=== PATIENT | female | born 1945 | race Caucasian/White ===

== ENCOUNTER 2016-12-01 13:18 | Observation (INO) ==
--- NOTE | 2016-12-01 13:40 | Emergency Department Note ---
Disposition Clinical Impression: Altered mental status Qualifiers: Altered mental status type: unspecified Qualified Code(s): R41.82 - Altered mental status, unspecified Disposition: Admitted As Inpatient Condition: Fair Referrals: Joao Barnes Jr, MD [Primary Care Provider] - Forms: ED Satisfaction Letter Time of Disposition: 15:37 Altered Mental Status HPI - General Chief Complaint: ED Altered Mental Status Stated Complaint: AMS, 830am LKW Time Seen by Provider: 12/01/16 13:26 Source: patient, family Limitations: no limitations Nursing Notes Reviewed: Yes Vital Signs Reviewed: Yes - History of Present Illness HPI Narrative: 71-year-old woke up this morning for slight headache about 8:30. The patient had a normal routine when laid back down because she wasn't feeling well. Patient woke up again at noon and doesn't remember doing any of her morning activities. She denies any weakness in her extremities any numbness. MD complaint: confusion Onset (ago): unknown (He awoke at 8:30 with a headache and some confusion.) Timing confirmed by: spouse Pain Severity: moderate Associated symptoms: Reports: headaches. Denies: chest pain, fever - Related Data Home Medications Medication Instructions Recorded Confirmed Alendronate Sodium [Fosamax] 70 mg PO QWEEK 02/19/16 02/19/16 Docusate [Colace] 50 mg PO DAILY 02/19/16 02/19/16 LORazepam [Ativan] 0.5 mg PO DAILY 02/19/16 02/19/16 Losartan/HCTZ [Hyzaar 50-12.5 1 each PO DAILY 02/19/16 02/19/16 Tablet] Simethicone [Gas-X] 80 mg PO QID 02/19/16 02/19/16 Previous Rx's Medication Instructions Recorded Oxycodone HCl/Acetaminophen 1 tab PO Q6H PRN #39 tab 02/19/16 [Percocet 10-325 mg Tablet] Allergies Allergy/AdvReac Type Severity Reaction Status Date / Time No Known Allergies Allergy Verified 12/01/16 13:20 Constitutional: Denies: fever, chills, weakness, weight change Eyes: Denies: eye pain, eye discharge, vision change ENT ED: Denies: ear pain, throat pain, dental pain, hearing loss, epistaxis, congestion, dysphagia Cardiovascular: Denies: chest pain, palpitations, dyspnea on exertion, edema, syncope Respiratory: Denies: cough, dyspnea, wheezes, hemoptysis, stridor Gastrointestinal: Denies: abdominal pain, nausea, vomiting, diarrhea, constipation, hematemesis, melena, hematochezia Genitourinary: Denies: dysuria, frequency, hematuria, discharge Musculoskeletal: Denies: back pain, neck pain, arthralgia, myalgia Integumentary: Denies: rash, abrasion, lesions Neurological: Reports: headache. Denies: weakness, numbness, paresthesias, confusion, abnormal gait, vertigo Psychiatric: Denies: anxiety, depression, suicidal thoughts, homicidal thoughts , auditory hallucinations, visual hallucinations Endocrine: Denies: fatigue Hematological/Lymphatic: Denies: easy bleeding, easy bruising Allergic/Immunologic: Denies: facial swelling, urticaria Past Medical History - Past Medical History Medical history: Reports: hyperlipidemia, hypertension, kidney stones, migraine , other Surgical history: Reports: breast surgery, cholecystectomy, orthopedic, other, other Psychiatric history: Reports: anxiety TEAR DOWN MATCHER history: Reports: no TEAR DOWN MATCHER history - Social History Smoking Status: Never smoker Smokeless Tobacco Status: No Alcohol use: Reports: none Drug use: Reports: none Physical Exam - General Limitations: no limitations General appearance: alert, in no apparent distress - Head Head exam: atraumatic, normocephalic, normal inspection - Eye Eye exam: Present: normal appearance, PERRL, EOMI - ENT ENT exam: normal exam, normal oropharynx, mucous membranes moist - Neck Neck exam: Present: normal inspection, full ROM, trachea midline - Chest Chest inspection: Present: normal inspection, symmetric chest wall rise - Respiratory Respiratory exam: Present: normal lung sounds bilaterally - Cardiovascular Cardiovascular exam: Present: regular rate, normal rhythm, normal heart sounds - Abdominal Exam Abdominal exam: Present: soft, Non-Tender. Absent: tenderness, distention, guarding, rebound, rigidity - Extremities Exam Extremities exam: Present: normal inspection, full ROM. Absent: tenderness, pedal edema - Expanded Lower Extremity Exam Neurovascular/Tendon exam: Absent: motor deficit, sensory deficit, tendon deficit Gait: not tested/not observed - Back Exam Back exam: Present: normal inspection, full ROM. Absent: tenderness - Neurological Exam Neurological exam: Present: alert, oriented X3 - Psychiatric Psychiatric exam: Present: normal affect, normal mood - Skin Skin exam: Present: warm, dry, intact, normal color Course - Reevaluation(s) Reevaluation #1: 71-year-old had an episode in which she did not remember what happened. At the point that I admit arrangements to admit the patient the mentioned that in the past she's had what is called abdominal seizures. Severe crampy abdominal pain following that she does not remember. Time: 15:35 - Consultations Consultation #1: Discussed with Thania Parish, jesus. Time: 15:36 Vital Signs Temperature 97.8 F 12/01/16 13:20 Pulse Rate 83 12/01/16 13:20 Respiratory Rate 16 12/01/16 13:20 Blood Pressure 135/84 12/01/16 13:20 O2 Sat by Pulse Oximetry 95 12/01/16 13:20 Temperature 97.8 F 12/01/16 13:20 Pulse Rate 52 12/01/16 14:50 Respiratory Rate 16 12/01/16 14:50 Blood Pressure 128/85 12/01/16 14:50 O2 Sat by Pulse Oximetry 96 12/01/16 14:50 Oxygen Delivery Oxygen Delivery Room Air Altered Mental Status - Lab Data Lab results reviewed: Yes I reviewed the patient's lab results. Result diagrams: 12/01/16 13:40 12/01/16 13:40 Lab Results 12/01/16 12/01/16 12/01/16 Range/Units 13:40 13:40 13:40 WBC 7.8 (4.3-11.1) K/mcL RBC 4.80 (3.82-4.97) M/mcL Hgb 15.4 (11.5-15.4) g/dL Hct 44.8 (35.3-44.9) % MCV 93.3 (83.0-100.0) fL MCH 32.1 (28.0-33.3) pg MCHC 34.4 (31.6-35.5) g/dL RDW 12.3 (11.5-14.5) % Plt Count 148 (140-400) K/mcL MPV 9.3 L (9.4-12.4) fL Immature Gran % 0.8 (0-4) % Seg Neutrophils % 71.0 % Lymphocytes % 21.3 % Monocytes % 6.0 % Eosinophils % 0.4 % Basophils % 0.5 % Neutrophils # 5.5 (1.6-8.9) K/mcL Lymphocytes # 1.7 (0.6-4.6) K/mcL Monocytes # 0.5 (0.0-1.3) K/mcL Eosinophils # 0.0 (0.0-0.6) K/mcL Basophils # 0.0 (0.0-0.2) K/mcL PT 11.5 (9.4-12.1) Seconds INR 1.1 APTT 28.5 (26.0-36.0) Seconds Sodium 138 (136-145) mEq/L Potassium 4.0 (3.5-4.5) mEq/L Chloride 107 (98-109) mEq/L Carbon Dioxide 21 (19-29) mEq/L BUN 13 (7-20) mg/dL Creatinine 1.09 (0.57-1.11) mg/dL Est GFR ( Amer) > 60 (> 60) Est GFR (Non-Af Amer) 50 L (> 60) BUN/Creatinine Ratio 12 (6-26) Glucose 118 H (70-99) mg/dL Calculated Osmolality 287 (280-300) Calcium 9.5 (8.6-10.8) mg/dL Total Bilirubin 0.7 (0.2-1.2) mg/dL Direct Bilirubin 0.2 (0.0-0.5) mg/dL Indirect Bilirubin 0.5 (0.0-1.2) mg/dL AST 29 (5-34) Units/L ALT 27 (0-55) Units/L Alkaline Phosphatase 52 (38-126) Units/L Troponin I (0-0.03) ng/mL Serum Total Protein 7.3 (6.0-8.3) g/dL Albumin 3.7 (3.5-5.0) g/dL Globulin 3.6 H (2.4-3.5) g/dL Albumin/Globulin Ratio 1.0 L (1.1-2.2) Urine Color (Yellow) Urine Clarity (Clear) Urine pH (5.0-8.0) pH Units Ur Specific [place] (1.010-1.025) Urine Protein (Neg-Trace) mg/dL Urine Glucose (UA) (Normal) mg/dL Urine Ketones (Negative) mg/dL Urine Blood (Negative) Urine Nitrite (Negative) Urine Bilirubin (Negative) Urine Urobilinogen (Normal) mg/dL Ur Leukocyte Esterase (Negative) Ur Culture Indicated? (NO) Urine Opiates Screen (Zcscpc=396) ng/mL Ur Barbiturates Screen (Gzoawd=701) ng/mL Ur Phencyclidine Scrn (Cutoff=25) ng/mL Ur Amphetamines Screen (Lseumj=1165) ng/mL U Benzodiazepines Scrn (Deegem=894) ng/mL Urine Cocaine Screen (Cutoff= 300) ng/mL U Marijuana (THC) Screen (Cutoff = 50) ng/mL Ethyl Alcohol < 10 (0-10) mg/dL 12/01/16 12/01/16 12/01/16 Range/Units 13:40 15:00 15:07 WBC (4.3-11.1) K/mcL RBC (3.82-4.97) M/mcL Hgb (11.5-15.4) g/dL Hct (35.3-44.9) % MCV (83.0-100.0) fL MCH (28.0-33.3) pg MCHC (31.6-35.5) g/dL RDW (11.5-14.5) % Plt Count (140-400) K/mcL MPV (9.4-12.4) fL Immature Gran % (0-4) % Seg Neutrophils % % Lymphocytes % % Monocytes % % Eosinophils % % Basophils % % Neutrophils # (1.6-8.9) K/mcL Lymphocytes # (0.6-4.6) K/mcL Monocytes # (0.0-1.3) K/mcL Eosinophils # (0.0-0.6) K/mcL Basophils # (0.0-0.2) K/mcL PT (9.4-12.1) Seconds INR APTT (26.0-36.0) Seconds Sodium (136-145) mEq/L Potassium (3.5-4.5) mEq/L Chloride (98-109) mEq/L Carbon Dioxide (19-29) mEq/L BUN (7-20) mg/dL Creatinine (0.57-1.11) mg/dL Est GFR ( Amer) (> 60) Est GFR (Non-Af Amer) (> 60) BUN/Creatinine Ratio (6-26) Glucose (70-99) mg/dL Calculated Osmolality (280-300) Calcium (8.6-10.8) mg/dL Total Bilirubin (0.2-1.2) mg/dL Direct Bilirubin (0.0-0.5) mg/dL Indirect Bilirubin (0.0-1.2) mg/dL AST (5-34) Units/L ALT (0-55) Units/L Alkaline Phosphatase (38-126) Units/L Troponin I 0.00 (0-0.03) ng/mL Serum Total Protein (6.0-8.3) g/dL Albumin (3.5-5.0) g/dL Globulin (2.4-3.5) g/dL Albumin/Globulin Ratio (1.1-2.2) Urine Color Yellow (Yellow) Urine Clarity Clear (Clear) Urine pH 6.0 (5.0-8.0) pH Units Ur Specific [place] 1.022 (1.010-1.025) Urine Protein Negative (Neg-Trace) mg/dL Urine Glucose (UA) Normal (Normal) mg/dL Urine Ketones Negative (Negative) mg/dL Urine Blood Negative (Negative) Urine Nitrite Negative (Negative) Urine Bilirubin Negative (Negative) Urine Urobilinogen Normal (Normal) mg/dL Ur Leukocyte Esterase Negative (Negative) Ur Culture Indicated? NO (NO) Urine Opiates Screen Negative (Jzmzti=300) ng/mL Ur Barbiturates Screen Negative (Fsbdsa=202) ng/mL Ur Phencyclidine Scrn Negative (Cutoff=25) ng/mL Ur Amphetamines Screen Negative (Nlgidb=4836) ng/mL U Benzodiazepines Scrn Negative (Mlrdpt=577) ng/mL Urine Cocaine Screen Negative (Cutoff= 300) ng/mL U Marijuana (THC) Screen Negative (Cutoff = 50) ng/mL Ethyl Alcohol (0-10) mg/dL - Radiology Data Radiology results reviewed: Yes I reviewed the patient's radiology results. Chest X-Ray 12/01/16 13:27 IMPRESSION: 1. No active pulmonary disease. 2. Chronic elevation right hemidiaphragm. D/ / Yoel Valderrama MD / Yoel Valderrama MD Interpreting Provider: Yoel Valderrama MD Head CT 12/01/16 13:38 IMPRESSION: No acute intracranial abnormality. D/ / Neto Young MD / Neto Young MD Interpreting Provider: Neto Young MD - EKG Data EKG attestation: Yes I reviewed and interpreted this EKG. EKG shows normal: sinus rhythm Rate: normal Rhythm: NSR Interpretation: nonspecific ST-T wave changes TPA Checklist - Eligibilty for IV tPA 1. LKW equal to or less than 4.5 hours be before treatment: No - LKW: 3-4.5 hrs Add. Contraindications Patient/family understanding: The patient/family members have been counseled and understood the risk, benefit , and alternatives of treatment. NIH Stroke Scale - Level of Consciousness LOC: Alert - LOC Questions LOC Questions: Answers both correctly - LOC Commands LOC Commands: Performs both correctly - Best Gaze Best Gaze: Normal - Visual Visual: No visual loss - Facial Palsy Facial Palsy: Normal - Motor Arms Motor Arm-Left: No drift for 10 seconds Motor Arm-Right: No drift for 10 seconds - Motor Legs Motor Leg-Left: No drift for 5 seconds Motor Leg-Right: No drift for 5 seconds - Limb Ataxia Limb Ataxia: Normal, No Ataxia - Sensory Sensory: Normal - Best Language Best Language: No aphasia - Dysarthria Dysarthria: Normal - Extinction and Inattention Extinction and Inattention: Normal - NIHSS Total Score NIHSS Total Score: 0
[2016-12-01 13:46] LABS: Basophils % 0.5 %; Eosinophils % 0.4 %; Hematocrit 44.8 % (35.3-44.9); Hemoglobin 15.4 g/dL (11.5-15.4); Immature Granulocytes % 0.8 % (0-4); Lymphocytes # 1.7 K/mcL (0.6-4.6); Lymphocytes % 21.3 %; Mean Corpuscular HGB Conc 34.4 g/dL (31.6-35.5); Mean Corpuscular Hemoglobin 32.1 pg (28.0-33.3); Mean Corpuscular Volume 93.3 fL (83.0-100.0); Mean Platelet Volume 9.3 fL (9.4-12.4); Monocytes # 0.5 K/mcL (0.0-1.3); Neutrophils # 5.5 K/mcL (1.6-8.9); Platelet Count 148 K/mcL (140-400); Red Cell Distribution Width 12.3 % (11.5-14.5)
[2016-12-01 13:54] LABS: INR 1.1; Prothrombin Time 11.5 Seconds (9.4-12.1)
[2016-12-01 13:57] LABS: Activated Partial Thrombo Time 28.5 Seconds (26.0-36.0)
[2016-12-01 14:00] LABS: Alanine Aminotransferase 27 Units/L (0-55); Albumin 3.7 g/dL (3.5-5.0); Alkaline Phosphatase 52 Units/L (38-126); Aspartate Amino Transferase 29 Units/L (5-34); BUN/Creatinine Ratio 12 (6-26); Bilirubin,Direct 0.2 mg/dL (0.0-0.5); Bilirubin,Indirect 0.5 mg/dL (0.0-1.2); Bilirubin,Total 0.7 mg/dL (0.2-1.2); Blood Urea Nitrogen 13 mg/dL (7-20); Calcium 9.5 mg/dL (8.6-10.8); Carbon Dioxide 21 mEq/L (19-29); Chloride 107 mEq/L (98-109); Globulin 3.6 g/dL (2.4-3.5); Glucose 118 mg/dL (70-99); Osmolality,Calculated 287 (280-300); Sodium 138 mEq/L (136-145); Total Protein 7.3 g/dL (6.0-8.3); eGFR For African Americans > 60 (> 60); eGFR For Non-African Americans 50 (> 60)
[2016-12-01 14:02] LABS: Ethanol < 10 mg/dL (0-10)
[2016-12-01 15:17] LABS: Bilirubin,Urine Negative (Negative); Blood,Urine Negative (Negative); Clarity,Urine Clear (Clear); Color,Urine Yellow (Yellow); Glucose,Urine (UA) Normal (Normal); Ketones,Urine Negative (Negative); Leukocyte Esterase,Urine Negative (Negative); Nitrite,Urine Negative (Negative); Protein,Urine Negative (Neg-Trace); Specific Gravity,Urine 1.022 (1.010-1.025); Urobilinogen,Urine Normal (Normal)
[2016-12-01 15:22] LABS: Amphetamine Screen,Urine Negative ng/mL (Cutoff=1000); Barbiturate Screen,Urine Negative ng/mL (Cutoff=200); Benzodiazepines Screen,Urine Negative ng/mL (Cutoff=200); Cannabinoid Screen,Urine Negative ng/mL (Cutoff = 50); Cocaine Screen,Urine Negative ng/mL (Cutoff= 300); Opiate Screen,Urine Negative ng/mL (Cutoff=300); Phencyclidine Screen,Urine Negative ng/mL (Cutoff=25)
[2016-12-01] MEDS ORDERED: Naloxone 0.4 MG/ML INJ IVP PRN (19:29)
[2016-12-01] MEDS ORDERED: Ondansetron 4 MG/2 ML VIAL IVP PRN (19:29)
[2016-12-01] MEDS ORDERED: Acetaminophen 325 MG TABLET PO PRN (19:29)
[2016-12-01] MEDS ORDERED: *HR* LORazepam 2 MG/ML VIAL IVP PRN (19:29)
[2016-12-01] MEDS ORDERED: 0.9 % Sodium Chloride 1,000 ML IVC SCH (19:30)
--- NOTE | 2016-12-01 19:46 | Internal Med History&Physical ---
Date of Encounter: 12/01/16 Time of Encounter: 18:43 Assessment and Plan (1) TIA (transient ischemic attack) Current visit: Yes Status: Acute We will place patient in observation. Start telemetry. Check MRI in the morning. Check carotid Doppler and echocardiogram. Consult neurology. Check lipid panel. Will obtain PT and OT evaluation. Start low-dose aspirin. Qualifiers: Transient cerebral ischemia type: transient global amnesia Qualified Code(s ): G45.4 - Transient global amnesia (2) Seizure disorder Current visit: Yes Status: Acute Consult neurology. Seizure precautions. Ativan when necessary. (3) Essential hypertension Current visit: Yes Status: Acute Continue oral home medications while allowing for permissive hypertension. (4) DVT prophylaxis Current visit: Yes Status: Acute We will provide prophylaxis with Lovenox. Internal Medicine - H&P: HPI Chief complaint: Amnesia Admitted From: Emergency Dept Plans for Post Hospital Care: Home History of present illness: Ms. Herrera is a 71 year old female with past medical history significant for hypertension who presented to the hospital for amnesia. History was obtained from the patient and emergency department physician spoke to the . The patient was in her usual state of health's morning when she took her dogs out for a walk and when she returned to the hospital she lied down and slept and when she woke up she could not remember how did she get back to the house and parts of her morning. She denied loss of consciousness weakness numbness or speech impairment headache visual loss chest pain nausea vomiting and diarrhea A temporary review of systems was otherwise negative except she used to have seizures but has not had a seizure for the last 5 years. Family history reviewed and found to be noncontributory to this case. Past Med Surg Social Fam HX - Past Medical History Medical history: hyperlipidemia, hypertension, kidney stones, migraine, other Psychiatric history: anxiety - Past Surgical History Surgical History: breast surgery, cholecystectomy, orthopedic, other, other - Social History Smoking Status: Never smoker Smokeless Tobacco Status: No Alcohol use: none Drug use: none - Family History Mother Living Status: Age at : 96 Hx Family Cardiac Disorders: No Hx Family Respiratory Disorders: No Hx Family Cancer: No Hx Family GI Disorders: No Hx Family Genitourinary Disorders: No Hx Family Endocrine Disorder: No Hx Family Musculoskeletal Disorders: No Hx Family Neuromuscular Disorders: No Hx Family Neurologic Disorders: No Hx Family HEENT Disorders: No Hx Family Autoimmune Disorders: No Hx Family Reproductive Disorders: No Hx Family Psychosocial Disorders: No Hx Family Medical Disorders: No Internal Medicine - H&P: Meds Alendronate Sodium [Fosamax] 70 mg PO QWEEK 02/19/16 [History] Docusate [Colace] 50 mg PO DAILY 02/19/16 [History] LORazepam [Ativan] 0.5 mg PO DAILY 02/19/16 [History] Losartan/HCTZ [Hyzaar 50-12.5 Tablet] 1 each PO DAILY 02/19/16 [History] Simethicone [Gas-X] 80 mg PO QID 02/19/16 [History] Allergies No Known Allergies Allergy (Verified 12/01/16 13:20) All Systems PM: A 10-system review of systems was performed and is negative for pertinent findings except as documented above in the HPI. - Constitutional Vitals: Temp Pulse Resp BP Pulse Ox 98.2 F 64 12 108/65 93 L 12/01/16 18:50 12/01/16 18:50 12/01/16 18:50 12/01/16 18:50 12/01/16 18:50 General appearance: Present: A&O X 3 - Respiratory Respiratory exam: Present: CTAB. Absent: accessory muscle use, rales, rhonchi, wheezes - Cardiovascular Cardiovascular exam: Present: RRR, +S1, +S2. Absent: diastolic murmur, gallop, rubs, systolic murmur - GI/Abdominal GI/Abdominal exam: Present: normal bowel sounds, soft, no peritoneal signs. Absent: distended, tenderness - Neurological Exam Neurological exam: Present: CN II-XII intact, oriented X3, no focal deficits. Absent: pronater drift, facial droop, speech deficit - Skin Skin exam: Present: dry, intact Internal Med - H&P Results - Labs CBC & Chem 7: 12/01/16 13:40 12/01/16 13:40
[2016-12-01] MEDS: Simethicone 80 MG TAB.CHEW PO SCH (22:06)
[2016-12-02 01:39] LABS: Basophils % 0.4 %; Eosinophils # 0.1 K/mcL (0.0-0.6); Eosinophils % 1.7 %; Hematocrit 41.8 % (35.3-44.9); Hemoglobin 14.1 g/dL (11.5-15.4); Immature Granulocytes % 0.5 % (0-4); Lymphocytes # 3.1 K/mcL (0.6-4.6); Lymphocytes % 36.2 %; Mean Corpuscular HGB Conc 33.7 g/dL (31.6-35.5); Mean Corpuscular Hemoglobin 32.2 pg (28.0-33.3); Mean Corpuscular Volume 95.4 fL (83.0-100.0); Mean Platelet Volume 9.4 fL (9.4-12.4); Monocytes # 0.8 K/mcL (0.0-1.3); Monocytes % 8.9 %; Neutrophils # 4.4 K/mcL (1.6-8.9); Platelet Count 144 K/mcL (140-400); Red Blood Count 4.38 M/mcL (3.82-4.97); Red Cell Distribution Width 12.4 % (11.5-14.5); Segmented Neutrophils % 52.3 %
[2016-12-02 01:57] LABS: Calcium 9.4 mg/dL (8.6-10.8); Chol/HDL Ratio 5.1 (0-4.9); Potassium 3.4 mEq/L (3.5-4.5)
[2016-12-02] MEDS ORDERED: *HR* Enoxaparin 40 MG/0.4 ML SYRINGE SQ SCH (07:00)
[2016-12-02 07:09] VITALS: BP 110/63
--- NOTE | 2016-12-02 07:55 | Neurology - Consult Note ---
Date of Encounter: 12/02/16 Time of Encounter: 07:52 Assessment and Plan (1) Transient global amnesia Current Visit: Yes Status: Acute I am convinced that this patient has experienced an episode of transient global amnesia. This phenomena and tends to have a predilection of recurring in individuals with a history of migraine headaches. It is not the equivalent of a TIA or seizure however. The underlying pathophysiologic basis of these events however is poorly understood. In regarding generally does not happen more than once in the same individual. I do not feel that this was a seizure her neurologic examination is normal, serial imaging is essentially normal. The event has resolved. I do not feel that any other testing is necessary. The EEG study can be canceled. Patient can be discharged at his discretion. It would be my pleasure to follow up with her as an outpatient for migraine headaches need further attention. The documentation in the history of HPI and plan were at least partially created by [employer] voice recognition technology by Dr. Loaiza. Errors in grammar, wording or other phrases may exist. If errors are found after the documentation signed, they will be addressed individually in the addendum section of this document when appropriate. History of Present Illness HPI: Ms. Herrera is a 71 year old female with a prior history of "sick headaches" is being seen for neurologic consultation secondary to an episode of transient amnesia. She recalls them a day of admission taking out the dog was at about 8: 00 that morning. Shortly thereafter she developed what she calls a "sick headache". When she came back in the house and went to sleep and woke up around noon time. When she awakened she had difficulty with her memory and could not understand why she would have been sleeping for so long that her thought she was acting strange as well. She was able to talk and respond she denies any visual changes and did still have a headache. Denies any numbness tingling or weakness. The episode of confusion persisted for about 1-2 hours. She is currently back to her normal baseline. She reports having "sick headaches" most of her life. She has never been diagnosed with migraine headaches however in the past she had been taking Midrin. She denies photophobia associated with the headaches but she generally would experience nausea sometimes vomiting. She reports that the headaches had been in remission for quite some time but over the last few weeks she has had one or 2. She has had an MRI scan of the brain which revealed no evidence of acute infarct there were scattered deep white matter changes that are not uncommon in individuals who experience migraine headaches. Again she is currently back to her normal baseline. Past Med Surg Social Fam HX - Past Medical History Medical history: hyperlipidemia, hypertension, kidney stones, migraine, other Psychiatric history: anxiety - Past Surgical History Surgical History: breast surgery, cholecystectomy, orthopedic, other, other - Social History Smoking Status: Never smoker Smokeless Tobacco Status: No Alcohol use: none Drug use: none - Family History Mother Living Status: Age at : 96 Hx Family Cardiac Disorders: No Hx Family Respiratory Disorders: No Hx Family Cancer: No Hx Family GI Disorders: No Hx Family Genitourinary Disorders: No Hx Family Endocrine Disorder: No Hx Family Musculoskeletal Disorders: No Hx Family Neuromuscular Disorders: No Hx Family Neurologic Disorders: No Hx Family HEENT Disorders: No Hx Family Autoimmune Disorders: No Hx Family Reproductive Disorders: No Hx Family Psychosocial Disorders: No Hx Family Medical Disorders: No Medications and Allergies Alendronate Sodium [Fosamax] 70 mg PO QWEEK 02/19/16 [History] Docusate [Colace] 50 mg PO DAILY 02/19/16 [History] LORazepam [Ativan] 0.5 mg PO DAILY 02/19/16 [History] Losartan/HCTZ [Hyzaar 50-12.5 Tablet] 1 each PO DAILY 02/19/16 [History] Simethicone [Gas-X] 80 mg PO QID 02/19/16 [History] Allergies No Known Allergies Allergy (Verified 12/01/16 13:20) All Systems: A 10-system review of systems was performed and is negative for pertinent findings except as documented above in the HPI. Review of Systems: 10 point review of systems is consistent with a history of present illness otherwise negative. Physical Examination - Vital Signs Vital Signs: Initial Vital Signs Temp Pulse Resp BP Pulse Ox 97.8 F 83 16 135/84 95 12/01/16 13:20 12/01/16 13:20 12/01/16 13:20 12/01/16 13:20 12/01/16 13:20 - Neurologic Detailed motor examination: full strength in all major muscle groups Motor examination - right side: 5/5: deltoids, biceps, triceps, wrist flexion, wrist extension, schedule analyst, hip flexors, tibialis Anterior, quadriceps, toe extension (EHL), plantarflexion Motor examination - left side: 02/20: deltoids, biceps, triceps, wrist flexion, wrist extension, hip flexors, schedule analyst, quadriceps, tibialis Anterior, toe extension (EHL), plantarflexion Mental Status Examination: awake, alert, oriented to person, oriented to place, oriented to time, follows commands appropriately, answers questions appropriately, no agnosia, no aphasia, no aproxia Cranial nerve examination: PERRL, EOMI, visual tomas intact, corneal reflexes brisk symmetrically, sensory to face intact, mastication intact, no facial asymmetry is present, no dysarthria, hearing is intact symmetrically, soft palate elevates bilaterally upon phonation, gag reflex intact, flexes SCM and trapezius muscles symmetrically with full power, tongue protrudes midline, no atrophy or facial fasiculations present Cerebellar examination: no dysmetria, performs finger to nose and heel to sweet symmetrically without ataxia, no gait ataxia, no truncal ataxia, no difficulty with rapid alternating movements Results - Laboratory Findings CBC and BMP: 12/02/16 01:29 12/02/16 01:29 Abnormal lab findings: Abnormal lab results Potassium 3.4 mEq/L (3.5-4.5) L 12/02/16 01:29 Creatinine 1.14 mg/dL (0.57-1.11) H 12/02/16 01:29 Est GFR ( Amer) 57 (> 60) L 12/02/16 01:29 Est GFR (Non-Af Amer) 47 (> 60) L 12/02/16 01:29 Glucose 120 mg/dL (70-99) H 12/02/16 01:29 Globulin 3.6 g/dL (2.4-3.5) H 12/01/16 13:40 Albumin/Globulin Ratio 1.0 (1.1-2.2) L 12/01/16 13:40 Triglycerides 213 mg/dL (< 150) H 12/02/16 01:29 Cholesterol 216 mg/dL (< 200) H 12/02/16 01:29 LDL Cholesterol, Calc 131 mg/dL (0-99) H 12/02/16 01:29 VLDL Cholesterol, Calc 43 mg/dL (< 31) H 12/02/16 01:29 Cholesterol/HDL Ratio 5.1 (0-4.9) H 12/02/16 01:29 Consult Discharge Plan - Plan Referrals: Joao Barnes Jr, MD [Primary Care Provider] -
[2016-12-02] MEDS: Simethicone 80 MG TAB.CHEW PO SCH ×3 (08:18→12:42)
[2016-12-02] MEDS ORDERED: Losartan/HCTZ 50-12.5 TABLET PO SCH (09:00)
[2016-12-02] MEDS ORDERED: Aspirin 81 MG TAB.CHEW PO SCH (09:00)
[2016-12-02] MEDS ORDERED: *HR* LORazepam 0.5 MG TABLET PO SCH (09:00)
--- NOTE | 2016-12-02 12:00 | Discharge Summary ---
Date of Encounter: 12/02/16 Time of Encounter: 09:30 - Discharge Diagnosis (1) Transient global amnesia Priority: Primary Status: Acute Comments: Patient asymptomatic throughout this admission. Chest x-ray negative. Head CT negative. MRI negative for acute processes. Seen and evaluated by neurology who states episode consistent with transient global amnesia, resolved. Follow up with neurology outpatient. No focal neurological weaknesses. Alert and oriented 3 throughout this admission. (2) TIA (transient ischemic attack) Priority: Primary Status: Resolved Qualifiers: Transient cerebral ischemia type: transient global amnesia Qualified Code(s ): G45.4 - Transient global amnesia (3) Migraine Priority: Secondary Status: Chronic Comments: Patient stating she has a lengthy history of migraines. She states that she used to take Midrin but was taken off that medication 2 years ago. She has not taken any preventative or abortive migraine medication since that time. She is going to follow up with neurology outpatient for further management of her migraines. We will send her home with Imitrex in the meantime. (4) CKD (chronic kidney disease) stage 3, GFR 30-59 ml/min Priority: Secondary Status: Chronic Comments: Stable and consistent with her baseline, follow-up outpatient. (5) DVT prophylaxis Priority: Primary Status: Acute Comments: Subcutaneous Lovenox while admitted (6) Essential hypertension Priority: Secondary Status: Chronic Comments: Controlled, recommend continued follow-up palpation. (7) Seizure disorder Priority: Primary Status: Ruled-out Comments: No signs or symptoms to support possible seizure disorder. - Discharge Medications Prescriptions: SUMAtriptan [Imitrex] 50 mg PO Q2H PRN #20 tablet PRN Reason: Migraine Headache Home Medications: Alendronate Sodium [Fosamax] 70 mg PO MO 02/19/16 [History] Docusate [Colace] 100 mg PO BID PRN 02/19/16 [History] LORazepam [Ativan] 0.5 mg PO DAILY 02/19/16 [History] Losartan/HCTZ [Hyzaar 50-12.5 Tablet] 1 each PO DAILY 02/19/16 [History] Simethicone [Gas-X] 80 mg PO QID 02/19/16 [History] SUMAtriptan [Imitrex] 50 mg PO Q2H PRN #20 tablet 12/02/16 [Rx] Allergies/Adverse Reactions: Allergies No Known Allergies Allergy (Verified 12/01/16 13:20) Procedures/tests Complete & Pending: Procedures Performed prior 72 hours Category Date Time Status MR head/brain wo/w con [MR] Routine MRI 12/01/16 19:37 Completed EV carotid duplex imaging BI Routine Y 12/01/16 19:37 Ordered Date of admission: 12/01/16 16:05 Primary care physician: Joao Barnes Jr, MD Consults: 12/01/16 19:33 Consult to Neurology [CONS] Routine Consulting Provider: [facility] Reason for Consult: TIA versus possible seizure Call Completed: Yes Consult to Occupational Therapy [CONS] Routine Comment: Evaluate, develop and implement POC Consult to Physical Therapy [CONS] Routine Comment: Evaluate, develop and implement POC 12/01/16 19:40 Consult to Occupational Therapy [CONS] Routine Comment: Evaluate, develop and implement POC Consult to Physical Therapy [CONS] Routine Comment: Evaluate, develop and implement POC Discharging clinician: Mary Alice Wolfe Anticipated date of discharge: 12/02/16 ( ) - Patient Status Disposition: Home, Self-Care Condition: Good Functional capacity at discharge: independent ambulation Overall status at discharge: patient is back to baseline - Discharge Instructions Follow Up With: Joao Barnes Jr, MD [Primary Care Provider] - Keenan Loaiza DO [Partnered Physician] - Additional Instructions: Follow-up with primary care provider in one to 2 weeks. Follow-up with neurology in 3-4 weeks - Diet and Activity Activity: increase activity as tolerated Diet: low salt diet Hospital course: Ms. Herrera is a 71 year old female with past medical history of hyperlipidemia, hypertension, migraines, anxiety. Patient presented to the emergency department chief complaint amnesia. Patient is stating she felt normal on the morning of presentation when she got back to her house after walking the dogs outside, she laid down to take a nap and when she woke up she could not remember how she got back to the house and could not remember most of the morning. She denied loss of consciousness, weakness, numbness, or speech difficulties. This episode resolved after 1-2 hours without intervention. Workup in the emergency department unremarkable. Chest x-ray negative. Head CT negative. Patient was admitted to the hospitalist service for further evaluation and management. Neurology was brought on board. [place] this diagnosis was likely related to transient global amnesia. Patient remained asymptomatic throughout this admission. She was alert and oriented 3. Brain MRI negative for acute processes. Of note, carotid duplex results pending at time of discharge, recommend follow-up outpatient for results. Urinalysis negative. Tox screen negative. She will follow up closely outpatient with neurology for further care of her migraines. She had no focal neurological weaknesses throughout this admission and therefore OT and PT were not indicated. She is discharged home in stable condition with close outpatient follow-up recommended. ITS Impressions Chest X-Ray 12/01/16 13:27 IMPRESSION: 1. No active pulmonary disease. 2. Chronic elevation right hemidiaphragm. D/ / Yoel Valderrama MD / Yoel Valderrama MD Interpreting Provider: Yoel Valderrama MD Head CT 12/01/16 13:38 IMPRESSION: No acute intracranial abnormality. D/ / Neto Young MD / Neto Young MD Interpreting Provider: Neto Young MD Brain MRI 12/01/16 19:37 IMPRESSION: 1. No acute intracranial abnormality. No acute infarct. 2. Mild scattered chronic microvascular ischemic changes. D/ / Michael Petersen MD / Michael Petersen MD Interpreting Provider: Michael Petersen MD - Time Spent with Patient Total time spent providing and/or coordinating discharge services: - Constitutional Vitals: Temp Pulse Resp BP Pulse Ox 97.6 F 62 18 110/63 94 L 12/02/16 07:06 12/02/16 07:06 12/02/16 07:06 12/02/16 07:06 12/02/16 08:20 General appearance: Present: A&O X 3, pleasant, no acute distress, answers questions appropriately - Head Head exam: Present: atraumatic, normocephalic - Eye Eye exam: Present: PERRL, conjuntiva pink, sclera anicteric Pupils: Present: PERRL - Neck Neck exam general surgery: Present: supple, trachea midline. Absent: lymphadenopathy - Respiratory Respiratory exam: Present: CTAB. Absent: accessory muscle use, rales, respiratory distress, rhonchi, wheezes - Cardiovascular Cardiovascular exam: Present: RRR, +S1, +S2. Absent: diastolic murmur, gallop, rubs, systolic murmur - GI/Abdominal GI/Abdominal exam: Present: normal bowel sounds, soft, no peritoneal signs. Absent: distended, tenderness - Extremities Exam Extremities exam: Present: warm, radial pulses palpable and symetrical. Absent : calf tenderness, cyanotic, pedal edema - Neurological Exam Neurological exam: Present: alert, CN II-XII intact, normal gait, oriented X3, no focal deficits, strengths equal and symetr throughout. Absent: pronater drift, facial droop, speech deficit - Skin Skin exam: Present: dry, intact, normal color, warm
--- NOTE | 2016-12-02 17:46 | Carotid Imaging Report ---
Carotid Duplex Patient Name:Dina Herrera Order Number:[id number] Procedure Date:12/02/2016 Date:1945ge:71 yrs Gender:Female Lt BP:108 / 72 mmHg Rt.BP:110 / 70 mmHgHeart Rate: Location:[facility] Room #: 3B16 Insight Leader:Corie Call RVT Referring MD:Eduardo Galarza MD edging machine setter:Nate Siu MD Reading MD:Jack Espinoza MD Primary Indications:TIA Risk Factors Yes/No Hypertension Yes Hypercholesterolemia Yes Smoker Previous Yes Impressions: The right carotid artery has minimal plaque throughout. The left carotid artery is normal throughout. Findings Carotid Duplex: Right: There is nonstenotic plaque in the right bifurcation. There is smooth homogeneous plaque. There is nonstenotic plaque in the right eca. There is smooth homogeneous plaque. Tortuous mid/distal Right ICA. Prior Study: No prior study available for comparison. Carotid Results Right PSV EDV Assessment Proximal CCA 94 22 Normal Mid CCA 83 26 Normal Distal CCA 83 24 Normal Bifurcation 57 15 Non Stenotic Plaque Proximal ICA 74 18 Normal Mid ICA 101 24 Normal Distal ICA 83 30 Normal ECA 148 21 Non Stenotic Plaque Vertebral Artery 29 9 Antegrade Flow Left PSV EDV Assessment Proximal CCA 158 21 Normal Mid CCA 70 20 Normal Distal CCA 81 27 Normal Bifurcation 70 15 Normal Proximal ICA 98 17 Normal Mid ICA 69 25 Normal Distal ICA 73 28 Normal ECA 86 11 Normal Vertebral Artery 40 14 Antegrade Flow Ratio's Right ICA/CCA Ratio: 1.21 ICA/CCA Values: 101/83 Left ICA/CCA Ratio: 1.40 ICA/CCA Values: 98/70 Updated by Jack Espinoza MD on 12/02/2016 5:42:45 PM electronically signed on 12/02/2016 5:43:03 PM with status of Final
--- NOTE | 2016-12-02 19:03 | Electrocardiograph Report ---
[place] [id number] Test Date: 2016-12-01 Pat Name: Dina Herrera Department: 103 Room: 3B16 Gender: F Overlock Waist[employer] Joiner: : 1945 Requested By: Mary Alice Wolfe Order Number: [id number] Reading MD: Deepika Banks Measurements Intervals [place] Rate: 69 P: 39 [place]: 181 QRS: -9 QRSD: 91 T: 30 QT: 410 QTc: 430 Interpretive Statements SINUS RHYTHM NONSPECIFIC ST \T\ T-WAVE ABNORMALITY Electronically Signed On 12-02-2016 19:01:53 EST by Deepika Banks
== END 2016-12-02 13:12 | disposition home or self-care (01) ==
LOC: 3BNU 13:18 → EMEROO 13:18 → 3BNU 16:23
PROVIDERS: ADMIT Internal Medicine; ATTEND Nurse Practitioner Family

== ENCOUNTER 2021-04-22 12:03 | Observation (INO) ==
[2021-04-22 14:17] LABS: Basophils % 0.7 %; Eosinophils # 0.2 K/mcL (0.0-0.6); Eosinophils % 2.7 %; Hematocrit 43.6 % (35.3-44.9); Hemoglobin 14.1 g/dL (11.5-15.4); Immature Granulocytes % 0.2 % (0-4); Lymphocytes # 1.8 K/mcL (0.6-4.6); Lymphocytes % 32.9 %; Mean Corpuscular HGB Conc 32.3 g/dL (31.6-35.5); Mean Corpuscular Hemoglobin 32.5 pg (28.0-33.3); Mean Corpuscular Volume 100.5 fL (83.0-100.0); Mean Platelet Volume 9.9 fL (9.4-12.4); Monocytes # 0.5 K/mcL (0.0-1.3); Monocytes % 9.9 %; Neutrophils # 2.9 K/mcL (1.6-8.9); Platelet Count 129 K/mcL (140-400); Red Blood Count 4.34 M/mcL (3.82-4.97); Red Cell Distribution Width 13.1 % (11.5-14.5); Segmented Neutrophils % 53.6 %; White Blood Count 5.5 K/mcL (4.3-11.1)
[2021-04-22] MEDS ORDERED: methylPREDNISolone 125 MG/2 ML VIAL IVP ONE (14:31)
[2021-04-22] MEDS ORDERED: Ipratropium/Albuterol Neb 3 ML IH ONE (14:31)
[2021-04-22 14:49] LABS: BUN/Creatinine Ratio 15 (6-26); Blood Urea Nitrogen 18 mg/dL (8-23); Calcium 9.6 mg/dL (8.6-10.3); Carbon Dioxide 27 mEq/L (23-29); Chloride 104 mEq/L (98-107); Glucose 81 mg/dL (70-105); Osmolality,Calculated 293 (280-300); Potassium 4.5 mEq/L (3.5-5.1); Sodium 141 mEq/L (136-145); Troponin I < 0.03 ng/mL (< 0.04); eGFR For African Americans 51 (> 60); eGFR For Non-African Americans 42 (> 60)
[2021-04-22] MEDS ORDERED: Isovue-370 500 ML BOTTLE IVP ONE ×2 (15:13→15:23)
[2021-04-22] MEDS ORDERED: 0.9 % Sodium Chloride 1,000 ML IV ONE (15:24)
[2021-04-22] MEDS ORDERED: Naloxone 0.4 MG/ML INJ IVP PRN (21:20)
[2021-04-22] MEDS ORDERED: Ondansetron 4 MG/2 ML VIAL IVP PRN (21:20)
[2021-04-22] MEDS ORDERED: 0.9 % Sodium Chloride 1,000 ML IVC SCH (21:30)
[2021-04-23] MEDS ORDERED: 0.9 % Sodium Chloride 1,000 ML IVC SCH (02:00)
[2021-04-23] MEDS: Ipratropium/Albuterol Neb 3 ML IH SCH ×5 (03:23→16:02)
[2021-04-23] MEDS: Acetylcysteine 10% 2 ML INHSOL IH SCH ×5 (03:23→16:02)
[2021-04-23 03:35] LABS: Adenovirus Not Detected (Not Detect); Bordetella Pertussis Not Detected (Not Detect); Chlamydophila pneumoniae Not Detected (Not Detect); Coronavirus 229E Not Detected (Not Detect); Coronavirus HKU1 Not Detected (Not Detect); Coronavirus NL63 Not Detected (Not Detect); Coronavirus OC43 Not Detected (Not Detect); Human Metapneumovirus Not Detected (Not Detect); Human Rhinovirus/Enterovirus Not Detected (Not Detect); Influenza A Subtype 2009 H1 Not Detected (Not Detect); Influenza B Not Detected (Not Detect); Mycoplasma pneumoniae Not Detected (Not Detect); Parainfluenza Virus 1 Not Detected (Not Detect); Parainfluenza Virus 2 Not Detected (Not Detect); Parainfluenza Virus 3 DETECTED (Not Detect); Parainfluenza Virus 4 Not Detected (Not Detect); Respiratory Syncytial Virus Not Detected (Not Detect); SARS-CoV-2 Not Detected (Not Detect)
[2021-04-23 05:20] LABS: Hematocrit 44.3 % (35.3-44.9); Hemoglobin 14.3 g/dL (11.5-15.4); Mean Corpuscular HGB Conc 32.3 g/dL (31.6-35.5); Mean Corpuscular Hemoglobin 32.4 pg (28.0-33.3); Mean Corpuscular Volume 100.5 fL (83.0-100.0); Mean Platelet Volume 9.7 fL (9.4-12.4); Platelet Count 127 K/mcL (140-400); Red Blood Count 4.41 M/mcL (3.82-4.97); Red Cell Distribution Width 12.9 % (11.5-14.5); White Blood Count 5.3 K/mcL (4.3-11.1)
[2021-04-23 05:38] LABS: Calcium 9.4 mg/dL (8.6-10.3); Potassium 3.6 mEq/L (3.5-5.1)
[2021-04-23] MEDS ORDERED: predniSONE 20 MG TABLET PO SCH (09:00)
[2021-04-23 14:11] VITALS: BP 101/61
== END 2021-04-23 16:07 | disposition home or self-care (01) ==
LOC: 3ANU 12:03 → EMEROOARM 12:03 → 3ANU 22:54
PROVIDERS: ADMIT Internal Medicine; ATTEND Internal Medicine